=== PATIENT | female | born 1965 | race Caucasian/White ===

== ENCOUNTER → 2021-06-09 | Day surgery (SDC) | payer OTHER ==
[~2021-06-09] MED LIST: ALAWAY10 ML EYEBOTH; BUSPIRONE HCL30 MG PO; CLARITIN10 M2 PO; COMBIVENT RESPIM4 GM INH; FERREX 150150 MG PO; FIORINAL CAPSULE1 EA PO; FLONASE 0.05% N16 GM; GABITRIL16 MG PO; MAGNESIUM OXID400 M2 PO; NEXIUM20 MG PO; OXYCONTIN30 MG PO; POTASSIUM CHLO20 ME2 PO; PRAVASTATIN SOD20 MG PO; TRANSDERM-SCOP1 EACH TOP; VITAMIN C 500500 MG PO; VITAMIN D21250 MCG PO; VOLTAREN EC 7575 MG PO; XYZAL5 MG PO; ZANAFLEX4 MG PO
== END | disposition home or self-care (01) ==
LOC: OR 06:59
DX: Z12.11 Encounter for screening for malignant neoplasm of colon (principal); D12.5 Benign neoplasm of sigmoid colon; K31.9 Disease of stomach and duodenum, unspecified; K21.9 Gastro-esophageal reflux disease without esophagitis; K64.1 Second degree hemorrhoids; K29.60 Other gastritis without bleeding; G43.909 Migraine, unspecified, not intractable, without status migrainosus; E78.00 Pure hypercholesterolemia, unspecified; K58.9 Irritable bowel syndrome, unspecified; M19.90 Unspecified osteoarthritis, unspecified site; I10 Essential (primary) hypertension; E66.3 Overweight; Z68.26 Body mass index [BMI] 26.0-26.9, adult; E78.5 Hyperlipidemia, unspecified; Z87.891 Personal history of nicotine dependence; Z88.8 Allergy status to other drugs, medicaments and biological substances
CPT/HCPCS: J2704; J7040; J7120